=== PATIENT | female | born 1950 | race Caucasian/White ===

== ENCOUNTER 2018-06-26 11:17 | Emergency (ER) | payer OTHER ==
[~2018-06-26] VITALS: Ht 160 cm; Wt 52.6 kg
[2018-06-26] MEDS ORDERED: HYDROCODONE-AP1 EAC6 PO (13:31)
[2018-06-26] MEDS ORDERED: ULTRA-LIGHT RO1 EACH (14:08)
[2018-06-26 14:35] VITALS: BP 150/76
== END 2018-06-26 14:49 | disposition home or self-care (01) ==
LOC: ER 11:17
DX: S32.502A Unspecified fracture of left pubis, initial encounter for closed fracture (principal); I10 Essential (primary) hypertension; Z87.891 Personal history of nicotine dependence; W01.0XXA Fall on same level from slipping, tripping and stumbling without subsequent striking against object, initial encounter; Y92.481 Parking lot as the place of occurrence of the external cause; Y93.01 Activity, walking, marching and hiking; Y99.8 Other external cause status